=== PATIENT | female | born 1955 | race Caucasian/White ===

== ENCOUNTER 2024-10-04 16:49 | Emergency (ER) | payer MEDICARE, SELFPAY ==
[2024-10-04] VITALS (13 sets, daily range): BP systolic 115–180; BP diastolic 55–92; PULSE 92–114; RESP 18–20; TEMP 36.7; O2SAT 91–100; BMI 35.2
--- NOTE | 2024-10-04 17:15 | ED_ITS ---
Documented by User: Eliezer Hadley DO 10/05/24 05:56 HPI - Abdominal Pain 2 General: Chief Complaint: Abdominal Pain Stated Complaint: abd pain Time Seen by Provider: 10/04/24 17:13 History of Present Illness: 69-year-old female presents emergency ro om left-sided flank pain rating to the groin. She has had a history of renal stones in the past states this feels similar to what she had before. Began early this morning. No nausea or vomiting. No bowel issues recently. Patient has not noticed anything that exacerbates or relieves she took an oxycodone from previous prescription earlier today with minimal relief of her symptoms. No hematuria no fever sweats or chills Associated Symptoms: Reports nausea and vomiting; Denies chills, dysuria and fever(s) Related Data Allergies Allergy/AdvReac Type Severity Reaction Status Date / Time cephalexin Allergy ALGY-Anaphy Verified 10/04/24 16:59 laxis Penicillins Allergy ALGY-Anaphy Verified 10/04/24 16:59 laxis Review of Systems 2 Const: Denies: fever(s) or chills Card: Denies: chest pain Resp: Denies: dyspnea GI: Reports: abdominal pain, nausea and vomiting : Reports: flank pain; Denies: dysuria, urinary frequency or urinary urgency Musc: Denies: neck pain or back pain Skin/Breast: Denies: rash PFSH ED 2 PFSH: Medical History (Updated 10/04/24 @ 20:25 by Edelmira Chávez MD) Nephrolithiasis Physical Exam 2 Const: GENERAL APPEARANCE: cooperative ORIENTATION/CONSCIOUSNESS: Yes awake, Yes oriented to person, Yes oriented to place and Yes oriented to time HENMT: COMMON NORMALS: normocephalic, atraumatic and hearing grossly normal bilaterally HEAD & SCALP: normocephalic and atraumatic Resp: COMMON NORMALS: normal respiratory effort, No retractions, No use of accessory muscles and clear to auscultation bilaterally AUSCULTATION: clear to auscultation bilaterally Cardio: COMMON NORMALS: regular rate, regular rhythm and No murmurs present (Cardio) RATE: regular rate RHYTHM: regular rhythm GI: COMMON NORMALS: Soft to palpation and No hepatosplenomegaly present A USCULTATION: Yes normoactive bowel sounds PALPATION: Yes Soft to palpation, No Tenderness to palpation present (GI), No Guarding due to palpation present (GI) and Yes No hepatosplenomegaly present Extremity: COMMON NORMALS: normal to inspection, capillary refill normal, no clubbing, cyanosis or edema, no calf tenderness and no pedal edema Neuro: SENSORIUM/ORIENTATION: Yes oriented to person, Yes oriented to place and Yes oriented to time Skin: COMMON NORMALS: no rashes or lesions noted GENERAL SKIN EXAM: no rashes or lesions noted Course 2 Vital Signs: Vital signs: Vital Signs Temperature 98.1 F 10/04/24 16:59 Pulse Rate 92 10/04/24 22:00 Respiratory Rate 18 10/04/24 21:01 Blood Pressure 130/68 10/04/24 22:00 Pulse Oximetry 93 10/04/24 22:00 Oxygen Delivery Me thod Room Air 10/04/24 21:30 MDM - Abdominal Pain Medical Decision Making Care signed out to Dr. Chávez at change of shift. See final notes for diagnosis and disposition. Lab Data 10/04/24 17:20 10/04/24 17:20 Labs/Radiology: Radiology Impressions Abdomen/Pelvis CT 10/04/24 17:17 IMPRESSION: Obstructing 8.8 mm calcified stone at the left UP junction with associated moderate hydronephrosis and enlargement of the left kidney. Laboratory Results WBC 16.37 10^3/uL (3.29-11.43) H 10/04/24 17:20 RBC 4.59 10^6/uL (3.85-5.65) 10/04/24 17:20 Hgb 13.50 g/dL (11.27-16.99) 10/04/24 17:20 Hct 42.4 % (36-47) 10/04/24 17:20 MCV 92.4 fl (85-98) 10/04/24 17:20 MCH 29.4 pg (27-33) 10/04/24 17:20 MCHC 31.8 g/dL (30-55) 10/04/24 17:20 RDW 13.7 % (12.1-15.1) 10/04/24 17:20 Plt Count 190 10^3/cmm (157-399) 10/04/24 17:20 MPV 12.8 fL (7.4-10.4) H 10/04/24 17:20 Neut % (Auto) 92.1 % 10/04/24 17:20 Lymph % (Auto) 3.8 % 10/04/24 17:20 [place] % (Auto) 3.1 % 10/04/24 17:20 Eos % (Auto) 0.2 % 10/04/24 17:20 Baso % (Auto) 0.4 % 10/04/24 17:20 Neut # (Auto) 15.08 10^3/uL (1.8-7.7) H 10/04/24 17:20 Lymph # (Auto) 0.6 10^3/uL (0.8-4.8) L 10/04/24 17:20 [place] # (Auto) 0.5 10^3/uL (0.2-0.9) 10/04/24 17:20 Eos # (Auto) 0.0 10^3/uL (0.0-0.8) 10/04/24 17:20 Baso # (Auto) 0.1 10^3/uL (0.0-0.1) 10/04/24 17:20 Nucleated RBC % (auto) 0 % 10/04/24 17:20 Nucleated RBCs # 0.0 /100WBC 10/04/24 17:20 Sodium 142 mmol/L (136-145) 10/04/24 17:20 Potassium 4.4 mmol/L (3.5-5.1) 10/04/24 17:20 Chloride 98 mmol/L (98-107) 10/04/24 17:20 Carbon Dioxide 26 mmol/L (22-29) 10/04/24 17:20 Anion Gap 22.4 (5-19) H 10/04/24 17:20 BUN 19 mg/dL (8-23) 10/04/24 17:20 Creatinine 1.2 mg/dL (0.5-0.9) H 10/04/24 17:20 GFR Calculation 44.7 mL/min (90-130) L 10/04/24 17:20 Glucose 161 mg/dL (65-115) H 10/04/24 17:20 Calculated Osmolality 300 mOsm/kg (285-295) H 10/04/24 17:20 Calcium 9.8 mg/dL (8.5-10.5) 10/04/24 17:20 Total Bilirubin 0.7 mg/dL (0.15-1.2) 10/04/24 17:20 AST 29 U/L (0-32) 10/04/24 17:20 ALT 21 U/L (0-33) 10/04/24 17:20 Alkaline Phosphatase 123 U/L (35-105) H 10/04/24 17:20 Total Protein 8.3 g/dL (6.6-8.7) 10/04/24 17:20 Albumin 4.6 g/dL (3.5-5.2) 10/04/24 17:20 Globulin 3.7 g/dL (1.3-4.6) 10/04/24 17:20 Lipase 44 U/L (13-60) 10/04/24 17:20 Urine Color Yellow (Yellow) 10/04/24 17:20 Urine Appearance Cloudy (CLEAR) A 10/04/24 17:20 Urine pH 6.5 (5-7) 10/04/24 17:20 Ur Specific [place] 1.023 (1.005-1.030) 10/04/24 17:20 Urine Protein 1+ (Negative) A 10/04/24 17:20 Urine Glucose (UA) Negative (Normal) 10/04/24 17:20 Urine Ketones Negative (Negative) 10/04/24 17:20 Urine Blood 2+ (Negative) A 10/04/24 17:20 Urine Nitrate Negative (Negative) 10/04/24 17:20 Urine Bilirubin Negative (Negative) 10/04/24 17:20 Urine Urobilinogen 1.0 mg/dL (Negative) 10/04/24 17:20 Ur Leukocyte Esterase 2+ (Negative) A 10/04/24 17:20 Urine RBC 21-50 /hpf (0-2) H 10/04/24 17:20 Urine WBC >100 /hpf (0-5) H 10/04/24 17:20 Ur Squamous Epith Cells 6-10 /hpf (0-5) 10/04/24 17:20 Amorphous Sediment Not Reportable 10/04/24 17:20 Urine Bacteria 4+ /hpf (NONE) H 10/04/24 17:20 Hyaline Casts 4.52 /lpf 10/04/24 17:20 Discharge Plan Discharge Patient Disposition: Xfer Short-Term Hosp Clinical Impression: Ureterolithiasis, Urinary tract infection, Leukocytosis Condition: Stable Referrals: [facility] [Other] Benigno Scherer [Primary Care Provider] - Coding Level of Care Code ED Potato Seed Cutter for Nithya Fwd Documented by User: Edelmira Chávez MD 10/04/24 20:48 HPI - Abdominal Pain 2 General: Chief Complaint: Abdominal Pain Stated Complaint: abd pain Time Seen by Provider: 10/04/24 17:13 History of Present Illness: 69-year-old female presents emergency ro om left-sided flank pain rating to the groin. She has had a history of renal stones in the past states this feels similar to what she had before. Began early this morning. No bowel issues recently. Patient has not noticed anything that exacerbates or relieves she took an oxycodone from previous prescription earlier today with minimal relief of her symptoms. No hematuria no fever sweats or chills Related Data Allergies Allergy/AdvReac Type Severity Reaction Status Date / Time cephalexin Allergy ALGY-Anaphy Verified 10/04/24 16:59 laxis Penicillins Allergy ALGY-Anaphy Verified 10/04/24 16:59 laxis PFSH ED 2 PFSH: Medical History (Updated 10/04/24 @ 20:25 by Edelmira Chávez MD) Nephrolithiasis Course 2 Vital Signs: Vital signs: Vital Signs Temperature 98.1 F 10/04/24 16:59 Pulse Rate 92 10/04/24 22:00 Respiratory Rate 18 10/04/24 21:01 Blood Pressure 130/68 10/04/24 22:00 Pulse Oximetry 93 10/04/24 22:00 Oxygen Delivery Me thod Room Air 10/04/24 21:30 MDM - Abdominal Pain Medical Decision Making Care signed out to Dr. Chávez at change of shift. See final notes for diagnosis and disposition. Medical decision making: Differential diagnosis including but not limited to and based on the above HPI, review of systems and physical exam: Ureterolithiasis. Urinary tract infection. Appendicitis. Cholecystis. Musculoskeletal / back pain. Pyelonephritis Orders placed to evaluate differential diagnosis based on the above differential, HPI and physical exam Lab Review: Laboratory results were reviewed and interpreted by myself the emergency room physician. Patient has significant leukocytosis with a white count of 16,000 and a left shift of 92%. Mild renal insufficiency with BUN and creatinine of 19 and 1.2. Glucose is a little elevated at 161. She does not have known diabetes. Urinalysis shows significant infection with leukocyte Estrace positive. Nitrite negative. Greater than 100 whites with [address] of the abdomen pelvis: Obstructing 9 mm stone at the left ureteropelvic junction. Moderate hydronephrosis. Enlargement of left kidney. Reexamination: Patient remained stable. No increased work of breathing. No altered mental status. No focal motor deficits. Consultation: I spoke with Dr. Kerr with urology. He agrees to transfer and likely a stent. Dr. Quinones excepting to the hospitalist service Assessment and plan: Ureterolithiasis Urinary tract infection Dehydration Leukocytosis -Patient requires transfer for emergent stent placement with a urinary tract infection and a large stone. She is at risk for sepsis. No fevers thus far. ?IV Cipro, normal saline bolus, morphine and Zofran. - Discussed findings and plan with patient. Answered any questions. - All laboratory values were reviewed and interpreted personally by myself, the ER physician - All imaging was reviewed and interpreted personally by myself, the ER physician. - Evaluation and treatment of this problem were appropriate in the emergency setting Lab Data 10/04/24 17:20 10/04/24 17:20 Labs/Radiology: Radiology Impressions Abdomen/Pelvis CT 10/04/24 17:17 IMPRESSION: Obstructing 8.8 mm calcified stone at the left UP junction with associated moderate hydronephrosis and enlargement of the left kidney. Laboratory Results WBC 16.37 10^3/uL (3.29-11.43) H 10/04/24 17:20 RBC 4.59 10^6/uL (3.85-5.65) 10/04/24 17:20 Hgb 13.50 g/dL (11.27-16.99) 10/04/24 17:20 Hct 42.4 % (36-47) 10/04/24 17:20 MCV 92.4 fl (85-98) 10/04/24 17:20 MCH 29.4 pg (27-33) 10/04/24 17:20 MCHC 31.8 g/dL (30-55) 10/04/24 17:20 RDW 13.7 % (12.1-15.1) 10/04/24 17:20 Plt Count 190 10^3/cmm (157-399) 10/04/24 17:20 MPV 12.8 fL (7.4-10.4) H 10/04/24 17:20 Neut % (Auto) 92.1 % 10/04/24 17:20 Lymph % (Auto) 3.8 % 10/04/24 17:20 [place] % (Auto) 3.1 % 10/04/24 17:20 Eos % (Auto) 0.2 % 10/04/24 17:20 Baso % (Auto) 0.4 % 10/04/24 17:20 Neut # (Auto) 15.08 10^3/uL (1.8-7.7) H 10/04/24 17:20 Lymph # (Auto) 0.6 10^3/uL (0.8-4.8) L 10/04/24 17:20 [place] # (Auto) 0.5 10^3/uL (0.2-0.9) 10/04/24 17:20 Eos # (Auto) 0.0 10^3/uL (0.0-0.8) 10/04/24 17:20 Baso # (Auto) 0.1 10^3/uL (0.0-0.1) 10/04/24 17:20 Nucleated RBC % (auto) 0 % 10/04/24 17:20 Nucleated RBCs # 0.0 /100WBC 10/04/24 17:20 Sodium 142 mmol/L (136-145) 10/04/24 17:20 Potassium 4.4 mmol/L (3.5-5.1) 10/04/24 17:20 Chloride 98 mmol/L (98-107) 10/04/24 17:20 Carbon Dioxide 26 mmol/L (22-29) 10/04/24 17:20 Anion Gap 22.4 (5-19) H 10/04/24 17:20 BUN 19 mg/dL (8-23) 10/04/24 17:20 Creatinine 1.2 mg/dL (0.5-0.9) H 10/04/24 17:20 GFR Calculation 44.7 mL/min (90-130) L 10/04/24 17:20 Glucose 161 mg/dL (65-115) H 10/04/24 17:20 Calculated Osmolality 300 mOsm/kg (285-295) H 10/04/24 17:20 Calcium 9.8 mg/dL (8.5-10.5) 10/04/24 17:20 Total Bilirubin 0.7 mg/dL (0.15-1.2) 10/04/24 17:20 AST 29 U/L (0-32) 10/04/24 17:20 ALT 21 U/L (0-33) 10/04/24 17:20 Alkaline Phosphatase 123 U/L (35-105) H 10/04/24 17:20 Total Protein 8.3 g/dL (6.6-8.7) 10/04/24 17:20 Albumin 4.6 g/dL (3.5-5.2) 10/04/24 17:20 Globulin 3.7 g/dL (1.3-4.6) 10/04/24 17:20 Lipase 44 U/L (13-60) 10/04/24 17:20 Urine Color Yellow (Yellow) 10/04/24 17:20 Urine Appearance Cloudy (CLEAR) A 10/04/24 17:20 Urine pH 6.5 (5-7) 10/04/24 17:20 Ur Specific [place] 1.023 (1.005-1.030) 10/04/24 17:20 Urine Protein 1+ (Negative) A 10/04/24 17:20 Urine Glucose (UA) Negative (Normal) 10/04/24 17:20 Urine Ketones Negative (Negative) 10/04/24 17:20 Urine Blood 2+ (Negative) A 10/04/24 17:20 Urine Nitrate Negative (Negative) 10/04/24 17:20 Urine Bilirubin Negative (Negative) 10/04/24 17:20 Urine Urobilinogen 1.0 mg/dL (Negative) 10/04/24 17:20 Ur Leukocyte Esterase 2+ (Negative) A 10/04/24 17:20 Urine RBC 21-50 /hpf (0-2) H 10/04/24 17:20 Urine WBC >100 /hpf (0-5) H 10/04/24 17:20 Ur Squamous Epith Cells 6-10 /hpf (0-5) 10/04/24 17:20 Amorphous Sediment Not Reportable 10/04/24 17:20 Urine Bacteria 4+ /hpf (NONE) H 10/04/24 17:20 Hyaline Casts 4.52 /lpf 10/04/24 17:20 All radiology interpretation(s) finalized by discharge Discharge Plan Discharge Patient Disposition: Xfer Short-Term Hosp Clinical Impression: Ureterolithiasis, Urinary tract infection, Leukocytosis Condition: Stable Referrals: [facility] [Other] Benigno Scherer [Primary Care Provider] - Coding Level of Care Code ED Potato Seed Cutter for Nithya Larson
--- NOTE | 2024-10-04 17:17 | CTR_ITS ---
PROCEDURE INFORMATION: Exam: CT Abdomen And Pelvis Without Contrast Exam date and time: 10/04/2024 5:36 PM Age: 69 years old Clinical indication: Abdominal pain; Flank; Left; Prior surgery; Surgery date: 6+ months; Surgery type: Gb, csection, appy; Additional info: Flank pain TECHNIQUE: Imaging protocol: Computed tomography of the abdomen and pelvis without contrast. Radiation optimization: All CT scans at this facility use at least one of these dose optimization techniques: automated exposure control; mA and/or kV adjustment per patient size (includes targeted exams where dose is matched to clinical indication); or iterative reconstruction. COMPARISON: l spine RADIATION DOSE METRICS: Total DLP (mGy-cm): 995.88 FINDINGS: Limitations: Examination is limited for the evaluation of solid organs and vascular structures due to the lack of intravenous contrast. Lungs: Lung bases are unremarkable. Liver: The liver is unremarkable. Calcified granulomas within the left lobe of the liver. Gallbladder and biliary ducts: Post cholecystectomy. Pancreas: Pancreas is unremarkable. No ductal dilation or peripancreatic inflammation. Spleen: The spleen contains calcified granulomas. Adrenal glands: Adrenal glands are unremarkable. Kidneys and ureters: Enlarged left kidney with perirenal inflammation. Mild left hydronephrosis with an obstructing 8.8 mm calcified stone at the UP junction. Stomach and bowel: Stomach is not fully distended. Small and large bowel are normal in caliber without evidence of obstruction. Diverticulosis without evidence of diverticulitis. Appendix: There has been an appendectomy. Intraperitoneal space: No free intraperitoneal air. No fluid collection. Vasculature: There is no aortic aneurysm. There is atherosclerotic disease. Lymph nodes: No pathologically enlarged lymph nodes (by short axis size criteria). Urinary bladder: Bladder is not fully distended. Reproductive: Uterus this atrophic with calcifications. No suspicious adnexal lesion seen. Bones/joints: Status post left total hip arthroplasty, hardware is intact. There are no fractures. No acute osseous abnormality. There is degenerative disease of the spine. Soft tissues: Unremarkable. There is a small fat containing umbilical hernia. CT/CT kidney stone [id number] IMPRESSION: Obstructing 8.8 mm calcified stone at the left UP junction with associated moderate hydronephrosis and enlargement of the left kidney.
[2024-10-04 17:30] LABS: Basophils # 0.1 10^3/uL (0.0-0.1); Basophils % 0.4 %; Eosinophils % 0.2 %; Hematocrit 42.4 % (36-47); Lymphocytes # 0.6 10^3/uL (0.8-4.8); Lymphocytes % 3.8 %; Mean Corpuscular HGB Conc 31.8 g/dL (30-55); Mean Corpuscular Hemoglobin 29.4 pg (27-33); Mean Corpuscular Volume 92.4 fl (85-98); Mean Platelet Volume 12.8 fL (7.4-10.4); Monocytes # 0.5 10^3/uL (0.2-0.9); Monocytes % 3.1 %; Neutrophils # 15.08 10^3/uL (1.8-7.7); Neutrophils % 92.1 %; Nucleated Red Blood Cells % 0 %; Platelet Count 190 10^3/cmm (157-399); Red Blood Count 4.59 10^6/uL (3.85-5.65); Red Cell Distribution Width 13.7 % (12.1-15.1); White Blood Count 16.37 10^3/uL (3.29-11.43)
[2024-10-04 17:49] LABS: Alanine Aminotransferase 21 U/L (0-33); Albumin Level 4.6 g/dL (3.5-5.2); Alkaline Phosphatase 123 U/L (35-105); Anion Gap 22.4 (5-19); Aspartate Amino Transferase 29 U/L (0-32); Blood Urea Nitrogen 19 mg/dL (8-23); Calcium 9.8 mg/dL (8.5-10.5); Carbon Dioxide 26 mmol/L (22-29); Chloride 98 mmol/L (98-107); Creatinine Clr Calc Pharmacy 55.0964; Globulin 3.7 g/dL (1.3-4.6); Glomerular Filtration Rate 44.7 mL/min (90-130); Glucose 161 mg/dL (65-115); Lipase 44 U/L (13-60); Osmolality Calculated 300 mOsm/kg (285-295); Potassium 4.4 mmol/L (3.5-5.1); Sodium 142 mmol/L (136-145); Total Bilirubin 0.7 mg/dL (0.15-1.2); Total Protein 8.3 g/dL (6.6-8.7)
[2024-10-04] MEDS: ondansetron 2 mg/ML SDV 2 mL 4 MG IVP (17:55)
[2024-10-04] MEDS: morphine 4 mg/mL SDV 1 mL IVP (17:55)
[2024-10-04 18:01] LABS: Bilirubin Urine Negative (Negative); Blood Urine 2+ (Negative); Glucose Urine UA Negative (Normal); Ketones Urine Negative (Negative); Leukocyte Esterase Urine 2+ (Negative); Nitrate Urine Negative (Negative); Protein Urine 1+ (Negative); Specific Gravity, Urine 1.023 (1.005-1.030); Urine Appearance Cloudy (CLEAR); Urine Color Yellow (Yellow); pH Urine 6.5 (5-7)
[2024-10-04 18:06] LABS: Add Urine Microscopic? YES; Bacteria Urine 4+ /hpf; Hyaline Casts Urine 4.52 /lpf; RBC Urine 21-50 /hpf (0-2); WBC Urine >100 /hpf (0-5)
[2024-10-04 18:09] LABS: Add Urine Culture? Yes
[2024-10-04] MEDS: ciprofloxacin 400 MG/200 ML PREMIX 200 MG IV (19:11)
[2024-10-04] MEDS: ondansetron 2 mg/ML SDV 2 mL 8 MG IVP (19:38)
[2024-10-04] MEDS: morphine 4 mg/mL SDV 1 mL 2 MG IVP (19:58)
[2024-10-04] MEDS: sodium chloride 0.9% 1,000 ML 999 ML IV (20:43)
== END 2024-10-04 22:16 | disposition short-term general hospital (02) ==
PROVIDERS: Emergency Medicine; Emergency Provider Emergency Medicine; PCP Family Medicine
DX: N20.1 Calculus of ureter (principal); N39.0 Urinary tract infection, site not specified; D72.829 Elevated white blood cell count, unspecified
CPT/HCPCS: 36415; 74176; 80053; 81001; 83690; 85025; 87077; 87086; 87186; 96365; 96366; 96375; 96376; 99285; J0744; J2270; J2405; J7030